=== PATIENT | female | born 1975 | race Caucasian/White ===

== ENCOUNTER 2021-07-31 05:39 | Emergency (ER) | payer OTHER, SELFPAY ==
[~2021-07-31] VITALS: Ht 162.6 cm; Wt 68.9 kg
[~2021-07-31 05:39] MED LIST: HUM SUBQ; LANTUS SUBQ
[2021-07-31 05:40] VITALS: BP 172/150
--- NOTE | 2021-07-31 05:40 | NUR ---
patient biba from home due to low blood sugar of 26 on seen per EMS ilya pt unresponsive. patient was give D10 and brought blood sugar up to 130. patient awoke agitated. LSN 10pm last night. patient found down in the garage. pmh: dm allx: unobtainable
--- NOTE | 2021-07-31 05:40 | NUR ---
PT KATIE ALS. TAKEN TO BED 2
--- NOTE | 2021-07-31 05:41 | NUR ---
Dr. Rodarte examining patient.
[2021-07-31] MEDS ORDERED: LORazepam 2 MG/ML VIAL ONE (05:59)
[2021-07-31] MEDS ORDERED: LORazepam 2 MG/ML VIAL IVP ONE (06:00)
--- NOTE | 2021-07-31 06:08 | NUR ---
patient given apple sauce, orange juice and crackers. patient tolerating well.
--- NOTE | 2021-07-31 06:14 | NUR ---
Dr. Gonzalez examining patient.
--- NOTE | 2021-07-31 06:18 | NUR ---
assisted patient to urinate on bed swan- patient tolerated well.
--- NOTE | 2021-07-31 07:01 | NUR ---
Pt report given to Moi WAYNE. Transfer of care at this time.
--- NOTE | 2021-07-31 07:01 | NUR ---
Report received from Lauren RN. Transfer of care at this time.
[2021-07-31] MEDS ORDERED: DEXTROSE 50% 50 ML SYR IVP ONE ×2 (07:20→07:21)
--- NOTE | 2021-07-31 07:20 | NUR ---
Blood gluscose taken [address] Gonzalez made aware orders given see MAR
--- NOTE | 2021-07-31 07:25 | NUR ---
apple juice and applesauce given to pt
--- NOTE | 2021-07-31 07:43 | NUR ---
blood glucose rechecked [address] Gonzalez made aware.
--- NOTE | 2021-07-31 07:47 | NUR ---
EKG COMPLETED AT BEDSIDE, RESULTS GIVEN TO DR. ARSHAD.
[2021-07-31 08:09] LABS: APPEARANCE,URINE CLEAR (CLEAR); BILIRUBIN,URINE NEGATIVE (NEGATIVE); BLOOD, URINE NEGATIVE (NEGATIVE); COLOR,URINE YELLOW (YELLOW); LEUKOCYTE ESTERASE ,URINE NEGATIVE (NEGATIVE); NITRITE, URINE NEGATIVE (NEGATIVE); UGLUCOSE 1+ (NEGATIVE)
[2021-07-31 08:15] LABS: BASOPHILS % (AUTO) 0.7 % (0.0-2.0); EOSINOPHILS # (AUTO) 0.1 K/uL (0-0.4); EOSINOPHILS % (AUTO) 0.8 % (0.0-4.0); HEMATOCRIT 38.9 % (36-48); LYMPHOCYTES % (AUTO) 26.7 % (20.5-51.1); MEAN CORPUSCULAR HEMOGLOBIN 31 pg (27-31); MEAN CORPUSCULAR HGB CONC 33 g/dL (33-37); MEAN CORPUSCULAR VOLUME 91.6 fL (80-94); MONOCYTES # (AUTO) 0.7 K/uL (0.8-1.0); MONOCYTES % (AUTO) 9.9 % (1.7-9.3); NEUTROPHILS # (AUTO) 4.5 K/uL (1.8-7.7); NEUTROPHILS % (AUTO) 61.9 % (42.2-75.2); PLATELET COUNT (AUTO) 342 K/uL (140-450); RED BLOOD CELL COUNT(AUTO) 4.24 MIL/uL (4.20-5.40); RED CELL DISTRIBUTION WIDTH 13.4 % (11.6-13.7); WHITE BLOOD COUNT (AUTO) 7.3 K/uL (4.8-10.8)
[2021-07-31 08:29] LABS: ALBUMIN 3.5 g/dL (3.4-5.0); ANION GAP 12.6 (8-16); ASPARTATE AMINOTRANSFERASE 61 U/L (15-37); CARBON DIOXIDE 30.5 mmol/L (21-32); CHLORIDE 101 mmol/L (98-107); CREATININE 0.7 mg/dL (0.6-1.3); GFR ARICAN-AMERICAN 115 mL/min (>90); GLUCOSE 56 mg/dL (74-106); POTASSIUM 3.1 mmol/L (3.5-5.1); SODIUM SERUM 141 mmol/L (136-145); TOTAL BILIRUBIN 0.3 mg/dL (0.0-1.0); UREA NITROGEN, BLOOD 16 mg/dL (7-18)
--- NOTE | 2021-07-31 09:18 | NUR ---
Rechecked bg [address] Gonzalez aware, pt is very sleepy, responds to painful stimuli. Dr Gonzalez at bedside at this time addition radiology to be ordered.
[2021-07-31] MEDS ORDERED: KCL 20 MEQ/WATER INJ PREMIX 100 ML IV ONE (10:00)
--- NOTE | 2021-07-31 10:10 | NUR ---
snack provided to pt.
--- NOTE | 2021-07-31 12:03 | NUR ---
BG 14, LUNCH TRAY PROVIDED Addendum: 07/31/21 at 1204 by [email or web address] BG 142, LUNCH TRAY PROVIDED
[2021-07-31 13:41] VITALS: BP 121/77
--- NOTE | 2021-07-31 13:48 | NUR ---
Patient discharged with v/s stable. Written and verbal after care instructions given and explained. Patient verbalized understanding. Ambulatory with steady gait. All questions addressed prior to discharge. Advised to follow up with PMD.
--- NOTE | 2021-08-03 10:55 | NUR ---
LATE ENTRY- IV POTASSIUM CHLORIDE DISCONTINUED AT 1348.
== END 2021-07-31 13:50 | disposition home or self-care (01) ==
LOC: MED 05:39
DX: E11.65 Type 2 diabetes mellitus with hyperglycemia (principal); R41.0 Disorientation, unspecified; F15.10 Other stimulant abuse, uncomplicated; R41.82 Altered mental status, unspecified; Z79.4 Long term (current) use of insulin; Z88.1 Allergy status to other antibiotic agents
CPT/HCPCS: 36415; 70450; 71045; 80053; 81003; 82948; 84484; 85025; 93005; 96361; 96374; 96375; 99285; G0482; J2060; J3480; Q0092

== ENCOUNTER 2022-02-06 07:57 | Emergency (ER) | payer OTHER ==
[~2022-02-06] VITALS: Ht 154.9 cm; Wt 59.0 kg
[~2022-02-06 07:57] MED LIST changes: +[UNRECOGNIZED DRUG - CODE] PO
[2022-02-06 08:21] VITALS: BP 144/111
[2022-02-06] MEDS ORDERED: DEXTROSE 50% 50 ML SYR IVP ONE (08:21)
--- NOTE | 2022-02-06 08:37 | NUR ---
PT BIB FAMILY C/O ALOC. PT THONY VEGA, BS 75, IV INSERTED, MEDICATED WITH D50 IVP. PT NOW AOX4, STATES TOOK INSULIN THIS AM AND HAD A "TWINKIE" AND WENT BACK TO SLEEP. NSR ON MONITOR. LAB AT BEDSIDE FOR BLOOD DRAW.
[2022-02-06 09:09] LABS: BASOPHILS # (AUTO) 0.1 K/uL (0.00-0.22); BASOPHILS % (AUTO) 0.7 % (0.0-2.0); EOSINOPHILS # (AUTO) 0.2 K/uL (0-0.4); HEMATOCRIT 36.7 % (36-48); LYMPHOCYTES # (AUTO) 3.3 K/uL (2.5-16.5); LYMPHOCYTES % (AUTO) 35.1 % (20.5-51.1); MEAN CORPUSCULAR HEMOGLOBIN 29 pg (27-31); MEAN CORPUSCULAR HGB CONC 33 g/dL (33-37); MONOCYTES % (AUTO) 11.1 % (1.7-9.3); NEUTROPHILS # (AUTO) 4.8 K/uL (1.8-7.7); NEUTROPHILS % (AUTO) 51.1 % (42.2-75.2); PLATELET COUNT (AUTO) 339 K/uL (140-450); RED BLOOD CELL COUNT(AUTO) 4.22 MIL/uL (4.20-5.40); WHITE BLOOD COUNT (AUTO) 9.4 K/uL (4.8-10.8)
[2022-02-06 09:20] LABS: ALBUMIN 3.9 g/dL (3.4-5.0); ANION GAP 13.8 (8-16); ASPARTATE AMINOTRANSFERASE 25 U/L (15-37); CARBON DIOXIDE 25.8 mmol/L (21-32); CHLORIDE 103 mmol/L (98-107); CREATININE 0.8 mg/dL (0.6-1.3); GFR ARICAN-AMERICAN 98 mL/min (>90); POTASSIUM 3.6 mmol/L (3.5-5.1); SALICYLATE 6.4 mg/dL (2.8-20.0); SODIUM SERUM 139 mmol/L (136-145); TOTAL BILIRUBIN 0.2 mg/dL (0.0-1.0); UREA NITROGEN, BLOOD 19 mg/dL (7-18)
--- NOTE | 2022-02-06 09:20 | NUR ---
PARTNER: AVELINA [phone]
[2022-02-06 09:21] LABS: GLUCOSE 25 mg/dL (74-106)
[2022-02-06 09:50] LABS: ACETAMINOPHEN < 0.5 ug/ml (10-30)
--- NOTE | 2022-02-06 11:09 | NUR ---
BS 258 DR GOLDBERG
[2022-02-06 11:18] VITALS: BP 128/70
== END 2022-02-06 11:18 | disposition home or self-care (01) ==
LOC: MED 07:57
DX: E11.649 Type 2 diabetes mellitus with hypoglycemia without coma (principal); I10 Essential (primary) hypertension; Z79.4 Long term (current) use of insulin; Z79.899 Other long term (current) drug therapy
CPT/HCPCS: 36415; 71045; 80053; 82550; 82553; 82948; 84484; 85025; 93005; 99291; G0480; G0482; Q0092